=== PATIENT | male | born 1970 | race Caucasian/White ===

== ENCOUNTER 2023-11-08 16:00 | Emergency (ER) | payer BC, SELFPAY ==
[2023-11-08 16:03] VITALS: BP 119/88
[2023-11-08 16:20] LABS: % Basophils 0.9 % (0-2); % Eosinophils 4.3 % (0-6); % Immature Granulocytes 0.3 % (0-0.5); % Lymphocytes 28.1 % (20.5-51.1); % Monocytes 7.6 % (1.7-9.3); % Neutrophils 58.8 % (42.2-75.2); Absolute Basophils 0.1 10^3/uL (0-0.2); Absolute Eosinophils 0.3 10^3/uL (0-0.7); Absolute Monocytes 0.5 10^3/uL (0.1-0.6); Absolute Neutrophils 4.1 10^3/uL (1.4-6.5); Hematocrit 45.7 % (39.0-52.0); Hemoglobin 13.5 g/dL (13.0-18.0); Mean Corp Hgb Conc. 29.5 g/dL (33.0-37.0); Mean Corpuscular Hgb 21.7 pg (27.0-31.0); Mean Corpuscular Volume 73.6 fL (80.0-94.0); Mean Platelet Volume 10.1 fL (7.4-10.4); Nucleated Red Blood Cells % 0 % (-); Platelet Count 214 10^3/uL (130-400); Red Blood Cell Count 6.21 10^6/uL (4.70-6.10); Red Cell Dist. Width 18.4 % (11.5-14.5)
[2023-11-08 16:35] LABS: ALT (SGPT) 31 U/L (0-50); AST (SGOT) 26 U/L (17-59); Albumin 4.3 g/dl (3.5-5.0); Alkaline Phosphatase 96 U/L (38-126); Blood Urea Nitrogen 16 mg/dl (9-20); Calcium 9.4 mg/dl (8.4-10.2); Carbon Dioxide 29 mmol/L (22-30); Chloride 100 mmol/L (98-107); Glucose 131 mg/dl (70-99); Lipase 150 U/L (23-300); Potassium 4.1 mmol/L (3.5-5.1); Sodium 139 mmol/L (135-145); Total Bilirubin 0.2 mg/dl (0.2-1.3); Total Protein 6.5 g/dl (6.3-8.2); eGFR > 60.00
[2023-11-08 17:02] VITALS: BMI 32.9
--- NOTE | 2023-11-08 18:46 | ED.GENMED ---
History of Present Illness
General
Chief Complaint: Abdominal Symptoms
Time Seen by Provider: 11/08/23 17:05
History of Present Illness
History of Present Illness:
53-year-old male presents to the emergency department for evaluation of left-sided lower abdominal pain for the past 3 weeks. Pain seems to wax and wane but has been more consistent recently. Notes that approximately 2 months ago he was treated
with neomycin and Xifaxan for SIBO. Denies any fevers or chills. Notes his bowel movement caliber has changed as well. No bloody bowel movements or melena. He was also treated with Augmentin last week for presumptive diverticulitis but feels
this did not help
Past History
Past History
ED Past Medical History: Fibromyalgia, NIDDM, Hypothyroidism and Other (Kidney stones, low testosterone, obstructive sleep apnea)
ED Past Surgical History: Orthopedic
Patient has exhibited threatening behavior?: No
PSI?: No
Social History
Tobacco: Non-smoker
Alcohol: None
Drug: None
Personal:
Living: with family
Employment: Employed (tax accountant)
Family History
Family History: Other (Noncontributory)
Review of Systems
Review of Systems
Allergies reviewed?: Yes
All Other Systems: ROS reviewed and negative except as documented in HPI and ROS
Phy Exam
Physical Exam
Physical Exam:
GEN: Well appearing, NAD, WDWN
HEENT: Oral mucosa moist, no scleral icterus
Cardiac: Regular rate
Lung: No respiratory distress, no tachypnea
Abdomen: Obesity limits exam however generally soft and nontender
MSK: No gross deformity or injuries
Skin: Good color, no pallor or jaundice, no rashes
Neuro: AO x3, moves all extremities freely
Psych: Calm, cooperative
Course
Orders/Labs/Results
Orders:
Orders
11/08/23 16:11
Complete Blood Count/With Diff Urgent
Comprehensive Metabolic Panel Urgent
Lipase Urgent
11/08/23 17:13
CT Abd/Pel (IV only)-DH only Urgent
Comment:
Reason For Exam: LLQ pain
11/08/23 19:48
C DIFF [C difficile Antigen & Toxins] Urgent
TRE Source: Feces/Stool
Specimen Description:
Date Specimen was Collected: 11/08/23
Time Specimen was Collected: 19:30
Stool Culture Urgent
TRE Source: Feces/Stool
Specimen Description:
Date Specimen was Collected: 11/08/23
Time Specimen was Collected: 19:30
Abnormal Lab Results
11/08/23
16:11
RBC 6.21 H 10^6/uL
(4.70-6.10)
MCV 73.6 L fL
(80.0-94.0)
MCH 21.7 L pg
(27.0-31.0)
MCHC 29.5 L g/dL
(33.0-37.0)
RDW 18.4 H %
(11.5-14.5)
Glucose 131 H mg/dl
(70-99)
11/08/23 16:11
11/08/23 16:11
Vital Signs
Initial and Last Documented VS:
Initial Vital Signs
Temp Pulse Resp BP Pulse Ox
97.8 F 80 16 119/88 96
11/08/23 16:03 11/08/23 16:03 11/08/23 16:03 11/08/23 16:03 11/08/23 16:03
Last Documented Vital Signs
Temp Pulse Resp BP Pulse Ox
97.8 F 74 20 127/81 99
11/08/23 16:03 11/08/23 19:10 11/08/23 19:10 11/08/23 19:10 11/08/23 19:10
*Critical Care Note
Total Time (30-74mins, 75-104mins- exclusive of procedures): Not Applicable
ED Attending Note
-
Portions of this chart may have been created with voice recognition software.� Occasional wrong word or��sound alike� substitutions may have occurred due to the inherent limitations of voice recognition software.
Discharge Plan
Departure
Patient Disposition: Home (Routine Discharge)
Date of Disposition: 11/08/23
Time of Disposition: 19:29
Patient with high blood pressure during this ER visit?: No
Condition: Good
Discharge Problem:
Abdominal pain, acute, left lower quadrant
Instructions: Abdominal Pain
Prescriptions:
No Action
sulfamethoxazole-trimethoprim 1 TABLET tablet
1 tab PO BID
liothyronine 5 MICROGRAM tablet
10 mcg PO DAILY
levothyroxine 50 MCG tablet
50 mcg PO DAILY
zaleplon 10 MG capsule
10 mg PO DAILY
Myrbertria
50 mg PO DAILY
pantoprazole 40 MG tablet,delayed release (DR/EC)
40 mg PO DAILY Qty: 30 0RF
cyclobenzaprine 10 MG tablet
10 mg PO TIDPRN PRN (Reason: back pain) Qty: 30 0RF
oxycodone-acetaminophen [Endocet] 5-325 mg tablet
1 tab PO Q8H PRN (Reason: pain) Qty: 3 0RF
Referrals:
Elías Hernandez DO [Family Provider] -
Activity Restrictions/Additional Instructions:
Follow up with your GI doctor
The stool studies (if provided) should be resulted in 1-2 days
Interventions
Interventions:
*Risk Screen - Suicide Last Done: 11/08/23 17:02
*General Assessment Last Done: 11/08/23 17:02
*Neglect/Abuse Screening Last Done: 11/08/23 17:02
ED- Fall Risk Assessment Last Done: 11/08/23 17:05
*ED COVID-19 Vaccine History Last Done: 11/08/23 17:02
*Nursing Disposition Last Done: 11/08/23 19:56
CL-Rjqbcv-Nrjxfelcfa Assessment Last Done: 11/08/23 17:02
Discharge Date and Time
Discharge Date/Time: 11/08/23 19:56
Print Language: GREEK
[2023-11-08 19:10] VITALS: BP 127/81
== END 2023-11-08 19:56 | disposition home or self-care (01) ==
LOC: EMR 16:00
PROVIDERS: EMERGENCY PHYSICIAN Emergency Medicine; FAMILY PHYSICIAN Family Medicine
DX: R10.32 Left lower quadrant pain (principal); E11.9 Type 2 diabetes mellitus without complications; E03.9 Hypothyroidism, unspecified; M79.7 Fibromyalgia; G47.33 Obstructive sleep apnea (adult) (pediatric); Z87.442 Personal history of urinary calculi; Z88.8 Allergy status to other drugs, medicaments and biological substances
CPT/HCPCS: 99284; 74177; 80053; 83690; 85025; 87045; 87046; 87324; 87427; 87449; Q9967

== ENCOUNTER 2023-11-25 11:08 | Emergency (ER) | payer BC, SELFPAY ==
[2023-11-25 11:15] VITALS: BP 127/91
--- NOTE | 2023-11-25 11:18 | ED.GENMED ---
ED Provider Triage
<Juan Tejeda PA-C - Last Filed: 11/25/23 11:19>
-
Patient seen by provider in Triage?: Seen in Triage
53-year-old male with bilateral flank pain worsening over several days. He was here at the end of October and diagnosed with C. difficile. He had a CT scan performed at that time which was negative. He is currently on vancomycin for his C.
difficile. He notes some increased frequency of urination. He denies fevers or chills or vomiting.
Evaluated in triage. Vital signs are stable. Check urine and labs
History of Present Illness
<Juan Tejeda PA-C - Last Filed: 11/25/23 11:19>
General
Chief Complaint: Flank Pain
Time Seen by Provider: 11/25/23 12:34
<Chrissie Greer MD - Last Filed: 11/25/23 15:20>
General
Source: patient
History of Present Illness
History of Present Illness:
This patient is a 53-year-old male presents emergency department with complaints of 'kidney pain' bilaterally for the last 3 weeks. He describes the pain is in the bilateral flank area, worse when he wakes up and better when he walks around and
throughout the day. It does not feel typical of a kidney stone and there is no radiation. He went to a chiropractor without relief of symptoms. He denies associated fever, chills, new abdominal pain, anorexia, vomiting. Patient has been recently
diagnosed with C. difficile, is being treated, and notes that his symptoms are improving in regards to abdominal discomfort and diarrhea. He denies hematuria, dysuria, urgency. He has IC and thinks that he has typical urinary frequency which is
mild. Patient denies numbness, tingling, focal weakness, bowel or bladder dysfunction, recent trauma or falls, heavy lifting, swelling, or other complaints.
Past History
<Juan Tejeda PA-C - Last Filed: 11/25/23 11:19>
Past History
ED Past Medical History: Fibromyalgia, NIDDM, Hypothyroidism and Other (Kidney stones, low testosterone, obstructive sleep apnea)
ED Past Surgical History: Orthopedic
Patient has exhibited threatening behavior?: No
PSI?: No
Social History
Tobacco: Non-smoker
Alcohol: None
Drug: None
Personal:
Living: with family
Employment: Employed (fund accountant)
Family History
Family History: Other (Noncontributory)
<Chrissie Greer MD - Last Filed: 11/25/23 15:20>
Past History
ED Past Medical History: Other (Kidney stones, low testosterone, obstructive sleep apnea, SIBO, C. difficile)
Phy Exam
<Chrissie Greer MD - Last Filed: 11/25/23 15:20>
Physical Exam
Physical Exam:
GENERAL: Alert , in no apparent distress, extremely well-appearing
EYE: pupils equal and round
NECK: Supple, no significant adenopathy.
ENT: o/p clr, mmm.
CARDIAC: Regular rate and rhythm .
LUNGS: Clear breath sounds bilaterally, no acute respiratory distress, no wheezes/rales/rhonchi
ABDOMEN: Soft, without focal tenderness, no r/g, no cvat
NEUROLOGICAL: Alert and oriented, no focal neuro deficits, motor 5 out of 5, sensory intact
SKIN: Warm and dry, skin intact.
MUSCULOSKELETAL: No edema, well perfused.
PSYCH: Normal and appropriate interaction.
Back no midline tenderness to palpation
Course
Sachilt;Juan Tejeda PA-C - Last Filed: 11/25/23 11:19>
Orders/Labs/Results
Orders:
Orders
11/25/23 11:23
Complete Blood Count/With Diff Urgent
Comprehensive Metabolic Panel Urgent
11/25/23 11:27
Urinalysis Reflex To Culture Urgent
Date Specimen was Collected: 11/25/23
Time Specimen was Collected: 11:25
11/25/23 12:48
US Kidneys [US Renal Only W/O Bladder] Urgent
Comment:
Reason For Exam: hx stones, c/o pain
Abnormal Lab Results
11/25/23 11/25/23
11:23 11:27
RBC 6.45 H 10^6/uL
(4.70-6.10)
MCV 71.8 L fL
(80.0-94.0)
MCH 21.1 L pg
(27.0-31.0)
MCHC 29.4 L g/dL
(33.0-37.0)
RDW 19.1 H %
(11.5-14.5)
MPV 10.8 H fL
(7.4-10.4)
Abs Immat Gran (auto) 0.1 H 10^3/uL
(0-0.05)
Immature Gran % 0.7 H %
(0-0.5)
Glucose 140 H mg/dl
(70-99)
Urine Glucose Trace A
(Negative)
11/25/23 11:23
11/25/23 11:23
Vital Signs
Initial and Last Documented VS:
Initial Vital Signs
Temp Pulse Resp BP Pulse Ox
98.6 F 87 18 127/91 98
11/25/23 11:15 11/25/23 11:15 11/25/23 11:15 11/25/23 11:15 11/25/23 11:15
Last Documented Vital Signs
Temp Pulse Resp BP Pulse Ox
98.5 F 86 20 131/81 99
11/25/23 13:00 11/25/23 14:00 11/25/23 14:00 11/25/23 14:00 11/25/23 14:00
<Chrissie Greer MD - Last Filed: 11/25/23 15:20>
Orders/Labs/Results
Orders:
Orders
11/25/23 11:23
Complete Blood Count/With Diff Urgent
Comprehensive Metabolic Panel Urgent
11/25/23 11:27
Urinalysis Reflex To Culture Urgent
Date Specimen was Collected: 11/25/23
Time Specimen was Collected: 11:25
11/25/23 12:48
US Kidneys [US Renal Only W/O Bladder] Urgent
Comment:
Reason For Exam: hx stones, c/o pain
Abnormal Lab Results
11/25/23 11/25/23
11:23 11:27
RBC 6.45 H 10^6/uL
(4.70-6.10)
MCV 71.8 L fL
(80.0-94.0)
MCH 21.1 L pg
(27.0-31.0)
MCHC 29.4 L g/dL
(33.0-37.0)
RDW 19.1 H %
(11.5-14.5)
MPV 10.8 H fL
(7.4-10.4)
Abs Immat Gran (auto) 0.1 H 10^3/uL
(0-0.05)
Immature Gran % 0.7 H %
(0-0.5)
Glucose 140 H mg/dl
(70-99)
Urine Glucose Trace A
(Negative)
11/25/23 11:23
11/25/23 11:23
Vital Signs
Initial and Last Documented VS:
Initial Vital Signs
Temp Pulse Resp BP Pulse Ox
98.6 F 87 18 127/91 98
11/25/23 11:15 11/25/23 11:15 11/25/23 11:15 11/25/23 11:15 11/25/23 11:15
Last Documented Vital Signs
Temp Pulse Resp BP Pulse Ox
98.5 F 86 20 131/81 99
11/25/23 13:00 11/25/23 14:00 11/25/23 14:00 11/25/23 14:00 11/25/23 14:00
<Chrissie Greer MD - Last Filed: 11/25/23 15:20>
*Critical Care Note
Total Time (30-74mins, 75-104mins- exclusive of procedures): Not Applicable
<Chrissie Greer MD - Last Filed: 11/25/23 15:20>
Update Note
Update Note:
Patient presents to the Emergency Department with _back pain
Number and Complexity of Problems Addressed at the Encounter
� Chronic conditions affecting care:
� Acute Exacerbation and/or Progression of Chronic Illness:
� Differential Diagnosis includes: But not limited to UTI/Aj, kidney stone, muscle strain, etc.
Amount and/or Complexity of Data to be Reviewed and Analyzed
� I performed an independent evaluation of and my interpretation is:
EKG:
CT:
Xrays:
Laboratory Studies: Generally unremarkable, urine not suggestive of a UTI
Other:us 8 mm nonobstructing calculus in the lower midportion of the left kidney
Otherwise normal
� Review of other/old records reveals:
� Clinical information was obtained by an independent historian:
� Prescriptions/Medications Considered but not given:
� Further testing considered but not performed:
Risk of Complications and/or Morbidity or Mortality of Patient Management
� Social determinants of health affecting care:
� Discussion with other providers (PCP, Hospitalists, Consultants, etc):
� Escalation of care including admission/observation vs risk of discharge considered:Reassessments, pt has been resting comforably, in nad. No acute/emergent etiology for pain noted today, not related to nonobs stone, doubt
dissection, aaa, etc. etc. D/w pt import of f/u and reasons to rted.
ED Attending Note
<Juan Tejeda PA-C - Last Filed: 11/25/23 11:19>
-
Portions of this chart may have been created with voice recognition software.� Occasional wrong word or��sound alike� substitutions may have occurred due to the inherent limitations of voice recognition software.
Discharge Plan
Departure
Patient Disposition: Home (Routine Discharge)
Date of Disposition: 11/25/23
Time of Disposition: 15:19
Patient with high blood pressure during this ER visit?: Yes
Condition: Good
Discharge Problem:
Back pain
Instructions: Back Pain, BLOOD PRESSURE
Prescriptions:
No Action
sulfamethoxazole-trimethoprim 1 TABLET tablet
1 tab PO BID
liothyronine 5 MICROGRAM tablet
10 mcg PO DAILY
levothyroxine 50 MCG tablet
50 mcg PO DAILY
zaleplon 10 MG capsule
10 mg PO DAILY
Myrbertria
50 mg PO DAILY
pantoprazole 40 MG tablet,delayed release (DR/EC)
40 mg PO DAILY Qty: 30 0RF
Referrals:
Elías Hernandez DO [Family Provider] - Follow up in 2-3 days
Activity Restrictions/Additional Instructions:
IF YOU DEVELOP INCREASING/NEW PAIN, FEVER, REDNESS/WARMTH/SWELLING, NUMBNESS, WEAKNESS, ABDOMINAL PAIN, VOMITING, OR OTHER WORRISOME SIGNS, GO TO THE ER IMMEDIATELY!
Interventions
Interventions:
*Risk Screen - Suicide Last Done: 11/25/23 11:15
*General Assessment Last Done: 11/25/23 11:15
*Neglect/Abuse Screening Last Done: 11/25/23 11:15
ED- Fall Risk Assessment Last Done: 11/25/23 13:00
*ED COVID-19 Vaccine History Last Done: 11/25/23 11:15
IP-Wzfdly-Pdpsjqjfsb Assessment Last Done: 11/25/23 13:00
ED-Male Genitourinary Assessment Last Done: 11/25/23 13:00
Discharge Date and Time
Print Language: SYRIAC
[2023-11-25 11:54] LABS: % Basophils 0.6 % (0-2); % Eosinophils 2.6 % (0-6); % Immature Granulocytes 0.7 % (0-0.5); % Lymphocytes 26.7 % (20.5-51.1); % Monocytes 6.7 % (1.7-9.3); % Neutrophils 62.7 % (42.2-75.2); Absolute Basophils 0.1 10^3/uL (0-0.2); Absolute Eosinophils 0.2 10^3/uL (0-0.7); Absolute Immature Granulocytes 0.1 10^3/uL (0-0.05); Absolute Lymphocytes 2.2 10^3/uL (1.2-3.4); Absolute Monocytes 0.6 10^3/uL (0.1-0.6); Absolute Neutrophils 5.2 10^3/uL (1.4-6.5); Hematocrit 46.3 % (39.0-52.0); Hemoglobin 13.6 g/dL (13.0-18.0); Mean Corp Hgb Conc. 29.4 g/dL (33.0-37.0); Mean Corpuscular Hgb 21.1 pg (27.0-31.0); Mean Corpuscular Volume 71.8 fL (80.0-94.0); Mean Platelet Volume 10.8 fL (7.4-10.4); Nucleated Red Blood Cells % 0 % (-); Platelet Count 260 10^3/uL (130-400); Red Blood Cell Count 6.45 10^6/uL (4.70-6.10); Red Cell Dist. Width 19.1 % (11.5-14.5); White Blood Cell Count 8.4 10^3/uL (4.8-10.8)
[2023-11-25 12:01] LABS: Urine Albumin Trace (Neg - Trace); Urine Bilirubin Negative (Negative); Urine Character Clear (Clear); Urine Color Yellow; Urine Glucose Trace (Negative); Urine Ketone Negative (Negative); Urine Leukocyte Negative (Negative); Urine Nitrite Negative (Negative); Urine Occult Blood Negative (Negative); Urine Specific Gravity 1.015 (<1.030); Urine Urobilinogen Negative (Neg - 1+); Urine pH 6.5 (5.0-9.0)
[2023-11-25 12:05] LABS: ALT (SGPT) 35 U/L (0-50); AST (SGOT) 29 U/L (17-59); Albumin 4.4 g/dl (3.5-5.0); Alkaline Phosphatase 89 U/L (38-126); Blood Urea Nitrogen 14 mg/dl (9-20); Calcium 9.1 mg/dl (8.4-10.2); Carbon Dioxide 30 mmol/L (22-30); Chloride 100 mmol/L (98-107); Glucose 140 mg/dl (70-99); Potassium 4.3 mmol/L (3.5-5.1); Sodium 142 mmol/L (135-145); Total Bilirubin 0.3 mg/dl (0.2-1.3); Total Protein 6.8 g/dl (6.3-8.2); eGFR > 60.00
--- NOTE | 2023-11-25 12:48 | EDRN ---
Dr. Greer currently at the [facility] bedside
[2023-11-25 13:00] VITALS: BP 131/82; BMI 29.2
[2023-11-25 14:00] VITALS: BP 131/81
--- NOTE | 2023-11-25 14:17 | EDRN ---
the pt is resting in the stretcher in the lowest position, side rails up x1, HOB elevated, no s/s of distress, the pt denies needing anything at this time, the pt is going to be taken to ultrasound, will continue to monitor the pt closely
[2023-11-25 15:47] VITALS: BP 119/84
== END 2023-11-25 15:51 | disposition home or self-care (01) ==
LOC: EMR 11:08
PROVIDERS: Physician Assistant; EMERGENCY PHYSICIAN Emergency Medicine; FAMILY PHYSICIAN Family Medicine
DX: M54.9 Dorsalgia, unspecified (principal); R03.0 Elevated blood-pressure reading, without diagnosis of hypertension
CPT/HCPCS: 99284; 76775; 80053; 81003; 85025

== ENCOUNTER → 2024-01-14 06:29 | Day surgery (SDC) | payer BC, SELFPAY ==
[2024-01-14 08:07] LABS: Glucose - Point of Care 120 mg/dl (70-99)
== END ==
LOC: GI 06:29
PROVIDERS: ATTENDING PHYSICIAN Internal Medicine Gastroenterology
DX: R10.84 Generalized abdominal pain (principal); R12 Heartburn; K22.89 Other specified disease of esophagus; K22.2 Esophageal obstruction; K44.9 Diaphragmatic hernia without obstruction or gangrene; K31.89 Other diseases of stomach and duodenum; K31.7 Polyp of stomach and duodenum; I89.0 Lymphedema, not elsewhere classified; R11.0 Nausea; K29.50 Unspecified chronic gastritis without bleeding; K22.70 Barrett's esophagus without dysplasia
CPT/HCPCS: 43239; 88305; 82962; 88342

== ENCOUNTER → 2024-07-13 15:19 | Outpatient (REF) | payer BC, SELFPAY ==
[2024-07-13 15:24] LABS: % Basophils 0.9 % (0-2); % Eosinophils 3.6 % (0-6); % Immature Granulocytes 0.2 % (0-0.5); % Lymphocytes 32.8 % (20.5-51.1); % Neutrophils 55.5 % (42.2-75.2); Absolute Basophils 0.1 10^3/uL (0-0.2); Absolute Eosinophils 0.2 10^3/uL (0-0.7); Absolute Lymphocytes 2.2 10^3/uL (1.2-3.4); Absolute Monocytes 0.5 10^3/uL (0.1-0.6); Absolute Neutrophils 3.7 10^3/uL (1.4-6.5); Hematocrit 48.5 % (39.0-52.0); Hemoglobin 14.6 g/dL (13.0-18.0); Mean Corp Hgb Conc. 30.1 g/dL (33.0-37.0); Mean Corpuscular Hgb 23.1 pg (27.0-31.0); Mean Corpuscular Volume 76.6 fL (80.0-94.0); Mean Platelet Volume 10.9 fL (7.4-10.4); Platelet Count 214 10^3/uL (130-400); Red Blood Cell Count 6.33 10^6/uL (4.70-6.10); Red Cell Dist. Width 19.9 % (11.5-14.5); White Blood Cell Count 6.6 10^3/uL (4.8-10.8)
== END ==
LOC: OIDL 15:19
PROVIDERS: ATTENDING PHYSICIAN Internal Medicine Hematology & Oncology
DX: E61.1 Iron deficiency (principal)
CPT/HCPCS: 85025

== ENCOUNTER 2024-11-10 15:37 | Emergency (ER) | payer BC, SELFPAY ==
[2024-11-10 15:41] VITALS: BP 125/85
--- NOTE | 2024-11-10 18:00 | ED.GENMED ---
History of Present Illness
General
Chief Complaint: Back Pain
Time Seen by Provider: 11/10/24 18:00
History of Present Illness
History of Present Illness:
FOCUSED PAST MEDICAL HISTORY
- Low back pain with hemilaminectomy, diabetes
REVIEW OF OLD RECORDS
- The MRI of the L-spine in 2016 at that time showed left-sided hemilaminectomy
Note:
CHIEF COMPLAINT(S)
Left flank and hip pain.
HISTORY OF PRESENT ILLNESS
The patient is a 54-year-old male who presents with complaints of pain in the left flank and hip. The pain is described as shooting down and is associated with some unusual stomach discomfort. He reported increased frequency of urination and gas
over the past few days but was unsure if it is related to kidney stones, as he had previously experienced. He has a history of recent MRI of the hip, reported as revealing general wear and tear, and has had pain starting around January 16. He has
received corticosteroid injections recently for pain, one in the hip area and another into the lower back. The patient mentioned a loss of sensation down the back of the leg and suspects femoral nerve entrapment. He describes a persistent 'searing'
pain radiating from the hip to the side and possibly related to sciatica.
PAST MEDICAL AND SURGICAL HISTORY
History of borderline diabetes, attempting to control with diet and exercise. Previous corticosteroid injection for hip pain and additional injection in the lower back.
CHRONIC MEDICAL CONDITIONS SIGNIFICANTLY AFFECTING CARE
Borderline diabetes, currently managed without medications.
REVIEW OF SYSTEMS
- Musculoskeletal: Reports of hip pain shooting down, loss of sensation down the lower leg.
- Genitourinary: Increased urination frequency.
- Gastrointestinal: Unusual stomach discomfort.
- Neurological: Shooting pain described as possibly related to femoral nerve entrapment.
PHYSICAL EXAM
General: Alert, but appears somewhat uncomfortable
Skin: Warm, dry.
Head: Normocephalic, atraumatic.
Neck: Supple, trachea midline.
Eye Ears, nose, mouth and throat: Oral mucosa moist.
Cardiovascular: Normal peripheral perfusion, No edema.
Respiratory: Respirations are non-labored.
Gastrointestinal: Abdomen nondistended, slight discomfort described, particularly towards the hip region.
Back: Some decreased active range of motion of the thoracolumbar spine due to pain no midline tenderness, there is a focal point of tenderness at the left CVA region the pelvis and also reports pain in the lower lumbar region
Musculoskeletal: Pain in the left hip and flank region, limited range of motion due to pain.
Neurological: Alert and oriented to person, place, time, and situation, No focal neurological deficit observed. Some decrease sensation (chronic posterolateral) left thigh
Psychiatric: Cooperative, appropriate mood & affect.
PROBLEM LIST
Acute:
- Left flank and hip pain
- Possible sciatica
- Unresolved back pain
Chronic:
- Borderline diabetes
PLAN
1. Administer an intravenous non-narcotic anti-inflammatory (Toradol) for pain relief.
2. Order a computed tomography scan to evaluate for kidney stones and assess the spine.
3. Follow-up after radiological examination for further evaluation and management.
DIFFERENTIAL DIAGNOSIS
The Differential Diagnosis includes, in no particular order and is not limited to:
1. Kidney stones
2. Femoral nerve entrapment
3. Sciatica
4. Hip osteoarthritis
5. Spinal stenosis
6. Radiculopathy
7. Muscle strain
8. Bursitis
9. Herniated disc
10. Peripheral neuropathy
SUMMARY OF ENCOUNTER
The patient, a 54-year-old male, presented with left flank and hip pain. An incidental finding of a 5 mm kidney stone in the bladder was noted on CT, suggesting that the stone passed from the ureter, thus alleviating acute stone-related pain.
However, the patient primarily reported persistent pain possibly related to sciatica, as indicated by pain shooting down towards the knee. The patient expressed the desire for relief until an MRI could be conducted next week, which would further
elucidate back pain etiology. A discussion was held regarding pain management options including oral corticosteroids, although it was acknowledged that this could elevate blood sugar levels. Ultimately, a short course of steroids was prescribed for
inflammation, and narcotics were prescribed for pain management.
DISPOSITION
Discharge.
ASSESSMENT
The patient currently reports hip and flank pain. Initial evaluation suggests possible sciatica or related neuropathic pain. A kidney stone was incidentally found in the bladder, which likely ruled out as the cause for immediate symptoms.
EMERGENCY TREATMENTS ADMINISTERED
None mentioned.
PLAN
1. Prescribe a short course of oral prednisone for inflammation and potential nerve pain relief, with careful monitoring of blood sugar levels.
2. Prescribe a short course of narcotics for acute pain management, advising the patient on risks of addiction and to use sparingly only as needed for severe pain.
3. Follow-up with a urologist for ongoing kidney stone management and aftercare.
4. Advise on maintaining hydration to assist in the continued passage of the stone.
5. Schedule follow-up with primary care or neurology to review MRI results and adjust pain management plan if necessary.
FOLLOW-UP INSTRUCTIONS
Follow up with a urologist regarding the kidney stone, and with primary care or neurology to review upcoming MRI results after it is conducted.
MEDICATION RECONCILIATION
1. Prednisone - short course prescribed for five days.
2. Prescription for a narcotic (exact type unspecified) given for short-term pain relief.
MEDICAL DECISION MAKING
-Number and Complexity of Problems Addressed: Chronic conditions affecting care include borderline diabetes and potential sciatica. Differential diagnoses considered include kidney stones, sciatica, hip osteoarthritis, radiculopathy, and more.
-Data:
-Category 1: My independent interpretation of the CT scan confirmed the presence of a 5 mm kidney stone in the bladder. No urinary infection or hematuria was noted.
-Category 2: Not applicable.
-Category 3: Management plan discussions with the patient, considering risks and benefits of steroid treatment given diabetes.
-Risk: Prescription medication was prescribed, including oral steroids known to affect blood sugar levels and narcotics which have addiction potential.
DIAGNOSIS
1. Left flank and hip pain, likely sciatica-related pain - ICD-10: M54.3
2. Incident of kidney stone in the bladder - ICD-10: N20.0
3. Borderline diabetes - ICD-10: R73.09
RADIOLOGY
- CT shows stone in the bladder
LABS
- Urine shows no blood and no sign of infection, white count slightly elevated 11.7
UPDATE
- The patient was given Toradol earlier
Past History
Past History
ED Past Medical History: Fibromyalgia, NIDDM, Hypothyroidism and Other (Kidney stones, low testosterone, obstructive sleep apnea, SIBO, C. difficile)
ED Past Surgical History: Orthopedic
Patient has exhibited threatening behavior?: No
PSI?: No
Social History
Tobacco: Non-smoker
Alcohol: None
Drug: None
Personal:
Living: with family
Employment: Employed (financial accountant)
Family History
Family History: Other (Noncontributory)
Phy Exam
Physical Exam
Physical Exam:
See HPI
Course
Orders/Labs/Results
Orders:
Orders
11/10/24 18:12
CT Abd/pel Without Iv Or Oral Urgent
Comment:
Reason For Exam: L flank pain to abd
Ketorolac [Toradol] 15 mg IV NOW STA
11/10/24 18:41
Complete Blood Count/With Diff Urgent
Comprehensive Metabolic Panel Urgent
11/10/24 19:47
Urinalysis Reflex To Culture Urgent
Date Specimen was Collected: 11/10/24
Time Specimen was Collected: 19:44
Urine Microscopic Reflex Cult Urgent
Abnormal Lab Results
11/10/24 11/10/24
18:41 19:47
WBC 11.7 H 10^3/uL
(4.8-10.8)
RBC 6.16 H 10^6/uL
(4.70-6.10)
Hct 52.4 H %
(39.0-52.0)
MCHC 32.3 L g/dL
(33.0-37.0)
RDW 15.8 H %
(11.5-14.5)
Abs Immat Gran (auto) 0.1 H 10^3/uL
(0-0.05)
Absolute Neuts (auto) 6.7 H 10^3/uL
(1.4-6.5)
Absolute Lymphs (auto) 4.1 H 10^3/uL
(1.2-3.4)
Absolute Monos (auto) 0.7 H 10^3/uL
(0.1-0.6)
Immature Gran % 0.9 H %
(0-0.5)
BUN 21 H mg/dl
(9-20)
Glucose 146 H mg/dl
(70-99)
Urine Bacteria (Reflex) Few A
(Negative)
Urine Albumin (Reflex) 1+ A
(Neg - Trace)
11/10/24 18:41
11/10/24 18:41
Vital Signs
Initial and Last Documented VS:
Initial Vital Signs
Temp Pulse Resp BP Pulse Ox
36.6 C 73 18 125/85 98
11/10/24 15:41 11/10/24 15:41 11/10/24 15:41 11/10/24 15:41 11/10/24 15:41
Last Documented Vital Signs
Temp Pulse Resp BP Pulse Ox
36.6 C 60 18 132/78 98
11/10/24 15:41 11/10/24 18:52 11/10/24 18:52 11/10/24 18:52 11/10/24 18:52
*Pulse Oximetry
SaO2: 98
Oxygen Mode of Delivery: Room air
Patient hypoxic: no
*Critical Care Note
Total Time (30-74mins, 75-104mins- exclusive of procedures): Not Applicable
ED Attending Note
-
Portions of this chart may have been created with voice recognition software.� Occasional wrong word or��sound alike� substitutions may have occurred due to the inherent limitations of voice recognition software.
Discharge Plan
Departure
Patient Disposition: Home (Routine Discharge)
Date of Disposition: 11/10/24
Time of Disposition: 20:35
Patient with high blood pressure during this ER visit?: Yes
Discharge Problem:
Low back pain
Instructions: Low Back Pain (DC), BLOOD PRESSURE
Prescriptions:
New
oxycodone-acetaminophen [Percocet] 5-325 mg tablet
1 - 2 tab PO Q6HPRN PRN (Reason: pain) Qty: 14 0RF
prednisone 20 mg tablet
20 mg PO DAILY Qty: 4 0RF
No Action
sulfamethoxazole-trimethoprim 1 TABLET tablet
1 tab PO BID
liothyronine 5 MICROGRAM tablet
10 mcg PO DAILY
levothyroxine 50 MCG tablet
50 mcg PO DAILY
zaleplon 10 MG capsule
10 mg PO DAILY
Myrbertria
50 mg PO DAILY
pantoprazole 40 MG tablet,delayed release (DR/EC)
40 mg PO DAILY Qty: 30 0RF
Referrals:
Elías Hernandez DO [Family Provider, Family Practice]
Activity Restrictions/Additional Instructions:
I sent a prescription for steroids to your pharmacy. This is a lower than typical dose and hopefully this will not raise your blood sugar too much. I also sent a prescription to your pharmacy for a narcotic. I recommend taking MiraLAX if you end
up taking the Percocet as Percocet can lead to constipation and there was some degree of constipation noted on the CT. Follow-up with your orthopedic doctor as well.
Interventions
Interventions:
*Risk Screen - Suicide Last Done: 11/10/24 15:41
*General Assessment Last Done: 11/10/24 15:41
*Neglect/Abuse Screening Last Done: 11/10/24 15:41
*ED COVID-19 Vaccine History Last Done: 11/10/24 15:41
*ED Influenza Vaccine History Last Done: 11/10/24 15:41
ED-Musculoskeletal Assessment Last Done: 11/10/24 18:51
Discharge Date and Time
Print Language: VIETNAMESE
[2024-11-10] MEDS: TORADOL 15 MG IV (18:44)
[2024-11-10 18:48] LABS: Hematocrit 52.4 % (39.0-52.0); Hemoglobin 16.9 g/dL (13.0-18.0); Mean Corp Hgb Conc. 32.3 g/dL (33.0-37.0); Mean Corpuscular Volume 85.1 fL (80.0-94.0); Nucleated Red Blood Cells % 0 % (-); Platelet Count 205 10^3/uL (130-400); Red Cell Dist. Width 15.8 % (11.5-14.5)
[2024-11-10 18:52] VITALS: BP 132/78
[2024-11-10 19:02] LABS: ALT (SGPT) 33 U/L (0-50); AST (SGOT) 24 U/L (17-59); Albumin 4.7 g/dl (3.5-5.0); Alkaline Phosphatase 70 U/L (38-126); Blood Urea Nitrogen 21 mg/dl (9-20); Calcium 9.9 mg/dl (8.4-10.2); Carbon Dioxide 30 mmol/L (22-30); Chloride 103 mmol/L (98-107); Glucose 146 mg/dl (70-99); Potassium 4.2 mmol/L (3.5-5.1); Sodium 138 mmol/L (135-145); Total Protein 7.0 g/dl (6.3-8.2); eGFR > 60.00
[2024-11-10 19:56] LABS: Urine Character Slightly Cloudy (Clear)
[2024-11-10 20:00] VITALS: BP 111/65
[2024-11-10 20:32] LABS: Urine Red Blood Cell 0-2 /HPF (0-2); Urine Squamous Cell 0-2 /LPF (Few)
[2024-11-10 20:33] LABS: Urine White Cell 0-2 /HPF (0-5)
== END 2024-11-10 21:12 | disposition home or self-care (01) ==
LOC: EMR 15:37
PROVIDERS: EMERGENCY PHYSICIAN Emergency Medicine; FAMILY PHYSICIAN Family Medicine
DX: M54.50 Low back pain, unspecified (principal); N21.0 Calculus in bladder; R03.0 Elevated blood-pressure reading, without diagnosis of hypertension; R73.03 Prediabetes; G47.33 Obstructive sleep apnea (adult) (pediatric); E03.9 Hypothyroidism, unspecified; M79.7 Fibromyalgia; Z87.442 Personal history of urinary calculi; Z86.19 Personal history of other infectious and parasitic diseases
CPT/HCPCS: 99284; 96374; 74176; 80053; 81003; 81015; 85025

== ENCOUNTER 2024-11-26 09:00 | Emergency (ER) | payer BC, SELFPAY ==
[2024-11-26 09:01] VITALS: BP 132/94
--- NOTE | 2024-11-26 09:31 | ED.GENMED ---
History of Present Illness
General
Chief Complaint: Musculo-Skeletal Complaint
Source: patient
Time Seen by Provider: 11/26/24 09:10
History of Present Illness
History of Present Illness:
54-year-old male with past medical history of GERD, vzn-mrojxzy-vecnrbpad diabetes, hypothyroidism presenting to the emergency department for evaluation of left-sided back and leg pain that has been ongoing for the last month plus, radiating from
the left lower back/hip down into the thigh towards the knee, intermittently burning sensation, paresthesia that is been worsening which is why patient presented back to the emergency department today. He is seen both [facility] and [facility]
orthopedics and is currently affiliated with pain management with Dr. Murphy, scheduled to undergo epidural this coming Saturday but states he feels that he cannot wait until then. He has been taking oxycodone as well as other muscle relaxants and
anti-inflammatories with minimal relief. He notes that he has had an MRI of his lumbar spine which showed disc herniation at L2 and L3, has previously had surgery at L4 and L5. He also had an MRI of the left hip which showed general degenerative
changes but nothing severe. Patient did contact Dr. Murphy's office via the patient portal this morning but decided to come to the emergency department for further evaluation.
Past History
Past History
ED Past Medical History: Fibromyalgia, NIDDM, Hypothyroidism and Other (Kidney stones, low testosterone, obstructive sleep apnea, SIBO, C. difficile)
ED Past Surgical History: Orthopedic
Patient has exhibited threatening behavior?: No
PSI?: No
Social History
Tobacco: Non-smoker
Alcohol: None
Drug: None
Personal:
Living: with family
Employment: Employed (commercial accountant)
Family History
Family History: Other (Noncontributory)
Review of Systems
Review of Systems
All Other Systems: ROS reviewed and negative except as documented in HPI and ROS
Phy Exam
Physical Exam
Physical Exam:
GENERAL: Alert , in no apparent distress, appears uncomfortable, pacing around the room
HEAD: Normocephalic atraumatic
EYE: Clear conjunctiva
NECK: Supple
ENT: o/p clr, mmm. Clear conjunctiva
ABDOMEN: Soft, without focal tenderness, no r/g, no cvat
BACK: ttp left paralumbar region
NEUROLOGICAL: Alert and oriented, Patellar DTR intact and equal bilateral, EHL intact. Subjective diminished sensory to LLE compared to right. (-)SLR b/l
SKIN: Warm and dry, skin intact.
MUSCULOSKELETAL: No edema, well perfused. Easily palpable pedal/tibial pulses
PSYCH: Normal and appropriate interaction.
Scores
Heart Failure Risk
Heart Failure Risk Score: Not Applicable
Heart Score for Chest Pain Patients
STEMI patient?: Not applicable
Withdrawal Assessment of Alcohol
Withdrawal Assessment Completed?: Not applicable
Course
Orders/Labs/Results
Orders:
Orders
11/26/24 09:30
Gabapentin [Neurontin] 600 mg PO NOW STA
Ketorolac [Toradol] 60 mg IM NOW STA
11/26/24 09:31
US Periph Venous LOWER Ext LT Urgent
Comment:
Reason For Exam: pain
Vital Signs
Initial and Last Documented VS:
Initial Vital Signs
Temp Pulse Resp BP Pulse Ox
97.3 F 76 16 132/94 97
11/26/24 09:01 11/26/24 09:01 11/26/24 09:01 11/26/24 09:01 11/26/24 09:01
Last Documented Vital Signs
Temp Pulse Resp BP Pulse Ox
97.3 F 75 20 125/86 99
11/26/24 09:01 11/26/24 11:12 11/26/24 11:12 11/26/24 11:12 11/26/24 11:12
MDM/Problems Addressed
Differential Diagnosis Includes:
Lumbar radiculopathy
DDD
Tendonitis
Hip bursitis
I do not have concern for infectious etiology (septic joint, osteo, discitis, epidural abscess)
PVD/PAD
DVT
MDM/Problems Addressed:
54-year-old male presenting to the ER for evaluation of pain to the left lower back radiating into the left leg/thigh, symptoms worsening over the last month or so. Was seen in the ER for similar back at the end of October, treated with a
prednisone taper but patient states he had stopped this because his blood sugars became significantly elevated. Has seen [facility] orthopedics in the past, was referred to a spinal surgeon at [facility] who did not recommend surgical procedure,
scheduled to see Dr. Murphy for epidural this coming Saturday. I do not have any concern for infectious etiology, I reassured patient after he expressed concern for possible malignancy but given his recent MRI without showing any masses or
abnormalities on blood work I did not feel this was a likely diagnosis. Will obtain an ultrasound to rule out DVT although my suspicion for this is very minimal. Will attempt pain relief here with Toradol and gabapentin, will prescribe a short
course of gabapentin for discharge home but I did strongly encourage patient to reach out to his pain management office for instruction/evaluation as needed.
*Radiology
Radiology exam reviewed: radiology read reviewed
*Pulse Oximetry
SaO2: 97
Oxygen Mode of Delivery: Room air
Patient hypoxic: no
*Critical Care Note
Total Time (30-74mins, 75-104mins- exclusive of procedures): Not Applicable
Patient Management
Escalation/DeEscalation of care consider admission/obs:
US negative for DVT. Stable for d/c home and outpatient follow up as scheduled with pain management. Rx for gabapentin sent to pharmacy
ED Attending Note
-
Portions of this chart may have been created with voice recognition software.� Occasional wrong word or��sound alike� substitutions may have occurred due to the inherent limitations of voice recognition software.
Discharge Plan
Departure
Patient Disposition: Home (Routine Discharge)
Date of Disposition: 11/26/24
Time of Disposition: 10:58
Patient with high blood pressure during this ER visit?: Yes
Discharge Problem:
Lumbar back pain with radiculopathy affecting left lower extremity
Instructions: Radiculopathy of the neck and back (including sciatica)
Prescriptions:
New
gabapentin 300 mg capsule
300 mg PO TID Qty: 15 0RF
No Action
sulfamethoxazole-trimethoprim 1 TABLET tablet
1 tab PO BID
liothyronine 5 MICROGRAM tablet
10 mcg PO DAILY
levothyroxine 50 MCG tablet
50 mcg PO DAILY
zaleplon 10 MG capsule
10 mg PO DAILY
Myrbertria
50 mg PO DAILY
pantoprazole 40 MG tablet,delayed release (DR/EC)
40 mg PO DAILY Qty: 30 0RF
oxycodone-acetaminophen [Percocet] 5-325 mg tablet
1 - 2 tab PO Q6HPRN PRN (Reason: pain) Qty: 14 0RF
prednisone 20 mg tablet
20 mg PO DAILY Qty: 4 0RF
Referrals:
UNKNOWN - PT DOES,NOT KNOW [Family Provider]
Interventions
Interventions:
*Risk Screen - Suicide Last Done: 11/26/24 09:01
*General Assessment Last Done: 11/26/24 10:00
*Neglect/Abuse Screening Last Done: 11/26/24 09:01
*ED COVID-19 Vaccine History Last Done: 11/26/24 10:00
*ED Influenza Vaccine History Last Done: 11/26/24 10:00
*Nursing Disposition Last Done: 11/26/24 11:12
ED-Musculoskeletal Assessment Last Done: 11/26/24 10:00
Discharge Date and Time
Discharge Date/Time: 11/26/24 11:13
Print Language: ISRAELI
[2024-11-26] MEDS: NEURONTIN 600 MG PO (09:44)
[2024-11-26] MEDS: TORADOL 60 MG IM (09:44)
[2024-11-26 11:12] VITALS: BP 125/86
== END 2024-11-26 11:13 | disposition home or self-care (01) ==
LOC: EMR 09:00
PROVIDERS: EMERGENCY PHYSICIAN Student in an Organized Health Care Education/Training Program
DX: M54.16 Radiculopathy, lumbar region (principal); M79.605 Pain in left leg; E03.9 Hypothyroidism, unspecified; E11.9 Type 2 diabetes mellitus without complications; M79.7 Fibromyalgia; G47.33 Obstructive sleep apnea (adult) (pediatric)
CPT/HCPCS: 96372; 99284; 93971